=== PATIENT | male | born 1955 | race Caucasian/White ===

== ENCOUNTER 2023-12-24 07:18 | Emergency (ER) | payer BC ==
[~2023-12-24] VITALS: Ht 165.1 cm; Wt 97.5 kg
[2023-12-24 08:04] LABS: BASOPHILS # (AUTO) 0.1 K/uL (0.0-0.2); BASOPHILS % (AUTO) 0.5 % (0.0-2.0); EOSINOPHILS # (AUTO) 0.2 K/uL (0.0-0.7); EOSINOPHILS % (AUTO) 1.4 % (0.0-6.0); HEMATOCRIT 43 % (39-51); HEMOGLOBIN 14.6 g/dL (13.5-17.5); LYMPHOCYTES # (AUTO) 2.1 K/uL (0.8-4.8); LYMPHOCYTES % (AUTO) 16.2 % (20.0-44.0); MEAN CORPUSCULAR HEMOGLOBIN 29 PG (26.0-33.0); MEAN CORPUSCULAR HGB CONC 34 g/dl (31.0-36.0); MEAN CORPUSCULAR VOLUME 84 fL (80-96); MONOCYTES # (AUTO) 1.9 K/uL (0.1-1.30); MONOCYTES % (AUTO) 14.1 % (2.0-12.0); NEUTROPHILS % (AUTO) 67.8 % (43.0-81.0); PLATELET COUNT (AUTO) 336 K/uL (150-450); RED BLOOD CELL COUNT(AUTO) 5.13 MIL/uL (4.5-6.0); WHITE BLOOD COUNT (AUTO) 13.2 K/uL (4.3-11.0)
[2023-12-24] MEDS ORDERED: ALBUTEROL FS 2.5 MG/3 ML VIAL.NEB ONE (08:08)
[2023-12-24] MEDS ORDERED: IPRATROPIUM NEB FS 0.5 MG/2.5 ML AMPUL.NEB ONE (08:08)
[2023-12-24 08:11] LABS: CALCIUM, SERUM 8.8 mg/dL (8.5-10.1); CREATININE 1.1 mg/dL (0.6-1.3)
[2023-12-24 08:15] VITALS: O2SAT 96
[2023-12-24] MEDS: IPRATROPIUM NEB FS 0.5 MG/2.5 ML AMPUL.NEB NEB ONE (08:38)
[2023-12-24] MEDS: ALBUTEROL FS 2.5 MG/3 ML VIAL.NEB CONTNEB ONE (08:38)
[2023-12-24 08:46] VITALS: O2SAT 97
[2023-12-24] MEDS ORDERED: predniSONE 20 MG TABLET ONE (08:48)
[2023-12-24] MEDS ORDERED: ACETAMINOPHEN ES 500 MG TABLET ONE (08:48)
[2023-12-24] MEDS: predniSONE 20 MG TABLET PO ONE (08:49)
[2023-12-24] MEDS: ACETAMINOPHEN ES 500 MG TABLET PO ONE (08:50)
[2023-12-24 09:35] VITALS: O2SAT 96
[2023-12-24] MEDS ORDERED: ALBU6.7H9 INH (09:46)
[2023-12-24] MEDS ORDERED: PRED50TA PO (09:46)
[2023-12-24] MEDS ORDERED: IBUP-1957 PO (09:46)
[2023-12-24] MEDS ORDERED: TYL2T PO (09:46)
[2023-12-24 10:21] VITALS: BP 141/76; TEMP 98; O2SAT 96
== END 2023-12-24 10:21 | disposition home or self-care (01) ==
LOC: ER 07:23
DX: J06.9 Acute upper respiratory infection, unspecified (principal); I10 Essential (primary) hypertension; F17.200 Nicotine dependence, unspecified, uncomplicated; B97.89 Other viral agents as the cause of diseases classified elsewhere; Z20.822 Contact with and (suspected) exposure to COVID-19
CPT/HCPCS: 99285; 71045; 87426; 87804 ×2; 85025; 80048; 36415; 87880; 94644; J7512; 86403-TC; 87070-TC

== ENCOUNTER 2024-04-06 01:06 | Emergency (ER) | payer BC, MEDICARE ==
[~2024-04-06] VITALS: Ht 165.1 cm; Wt 95.3 kg
[~2024-04-06 01:06] MED LIST: ALBU6.7H9 INH; IBUP-1957 PO; PRED50TA PO; TYL2T PO
[2024-04-06 03:08] LABS: APPEARANCE,URINE SLIGHTLY CLOUDY (CLEAR); BILIRUBIN,URINE NEGATIVE (NEGATIVE); BLOOD, URINE 3+ Ery/uL (NEGATIVE); COLOR,URINE YELLOW (YELLOW); KETONES,URINE NEGATIVE (NEGATIVE); LEUKOCYTE ESTERASE ,URINE NEGATIVE (NEGATIVE); NITRITE, URINE NEGATIVE (NEGATIVE); PH,URINE 5.5 (5.0-8.0); PROTEIN,URINE 1+ mg/dl (NEGATIVE); RBC,URINE 81-100 /HPF (0-2); UGLUCOSE NEGATIVE (NEGATIVE); UROBILINOGEN,URINE 0.2 EU/dL (0.2)
[2024-04-06 03:09] LABS: ADD URINE CULTURE NO; BACTERIA,URINE Rare /HPF (None Seen); SQUAMOUS EPITHELIAL CELL,UR Few /HPF (None Seen)
[2024-04-06 03:36] VITALS: BP 145/89; TEMP 98; O2SAT 99
== END 2024-04-06 03:37 | disposition home or self-care (01) ==
LOC: ER 01:09
DX: R33.9 Retention of urine, unspecified (principal); F17.200 Nicotine dependence, unspecified, uncomplicated; I10 Essential (primary) hypertension; Z79.52 Long term (current) use of systemic steroids
CPT/HCPCS: 81001